=== PATIENT | female | born 1985 | race African-American/Black ===

== ENCOUNTER 2019-06-14 15:18 | Emergency (ER) | payer MEDICAID ==
[~2019-06-14] VITALS: Ht 154.9 cm; Wt 55.8 kg
[2019-06-14 15:23] VITALS: BP 99/62
[2019-06-14] MEDS ORDERED: IRON325 M1 PO (15:27)
[2019-06-14 15:40] VITALS: BP 99/62
[2019-06-14] MEDS ORDERED: ROBAXIN-750750 MG PO (15:52)
[2019-06-14] MEDS ORDERED: TYLENOL EXTRA500 MG ORAL (15:52)
--- NOTE | 2019-06-14 15:52 | Emergency Room Report ---
History of Present Illness General Chief Complaint: Pain Source: Patient Present Illness HPI 34-year-old female presents to the emergency department complaining of 10 out of 10 severity progressive onset upper back and neck pain x2 weeks. Patient reports she slept wrong one night and has had neck pain ever since. Patient reports she feels tightness in her neck and it radiates up towards the back of her head associated occasional headache as well. Patient denies trauma, fall, fevers, chills, photophobia, paresthesias, recent spinal procedures or history of cancer. Patient states that on some days her neck feels really stiff on the right side and will resolve spontaneously after lots of stretching. Patient states she is not taking any medications for her symptoms other than trying Motrin here and there which did not work. Denies recent illness or viral symptoms. Denies midline neck or back pain. Pt. reports pain and tightness to both sides of the neck posteriorly but not on the bone. Allergies: Coded Allergies: No Known Allergies (Unverified , 06/14/19) Patient History Past Medical History: see triage record Past Surgical History: none Pertinent Family History: none Last Menstrual Period: MAY 2019 Reviewed Nursing Documentation: PMH: Agreed; PSxH: Agreed Nursing Documentation-PMH Past Medical History: No History, Except For Review of Systems All Other Systems: negative except mentioned in HPI Physical Exam Vital Signs Date Time Temp Pulse Resp B/P (MAP) Pulse Ox O2 Delivery O2 Flow Rate FiO2 06/14/19 15:23 98.4 81 18 99/62 (74) 99 Room Air Sp02 EP Interpretation: reviewed, normal General Appearance: well appearing, no apparent distress, alert, GCS 15, non- toxic Head: normocephalic, atraumatic Eyes: bilateral eye normal inspection, bilateral eye PERRL, bilateral eye other - no photophobia ENT: hearing grossly normal, normal voice, TMs + canals normal Neck: full range of motion, no meningismus, no bony tend, tender lateral - right> left , No midline spinous process ttp. No palpable step-offs or obvious deformities. Respiratory: chest non-tender, lungs clear, normal breath sounds, speaking full sentences Cardiovascular #1: regular rate, rhythm Musculoskeletal: normal range of motion, gait/station normal, non-tender, tender - cervical paraspinal ttp. No midline spinous process ttp. No palpable step-offs or obvious deformities of the cervical, thoracic, lumbar or sacral spine. Neurologic: alert, motor strength/tone normal, oriented x3, sensory intact, responsive, speech normal Psychiatric: judgement/insight normal Lymphatic: no adenopathy Medical Decision Making PA Attestation Dr. Guzman is my supervising Physician whom patient management has been discussed with. Diagnostic Impression: Primary Impression: Cervical muscle strain Qualified Codes: S16.1XXA - Strain of muscle, fascia and tendon at neck level , initial encounter Additional Impression: Neck muscle spasm ER Course 34-year-old female presents to the emergency department complaining of 10 out of 10 severity progressive onset upper back and neck pain x2 weeks. Patient reports she slept wrong one night and has had neck pain ever since. Patient reports she feels tightness in her neck and it radiates up towards the back of her head associated occasional headache as well. Patient denies trauma, fall, fevers, chills, photophobia, paresthesias, recent spinal procedures or history of cancer. Patient states that on some days her neck feels really stiff on the right side and will resolve spontaneously after lots of stretching. Patient states she is not taking any medications for her symptoms other than trying Motrin here and there which did not work. Denies recent illness or viral symptoms. Denies midline neck or back pain. Pt. reports pain and tightness to both sides of the neck posteriorly but not on the bone. Ddx considered but are not limited to Fracture, dislocation, contusion, Sprain/ Strain/Spasm, Epidural abscess, Neoplastic mets. Vital signs: are WNL, pt. is afebrile H&PE are most consistent with soft tissue neck strain, no evidence to suggest spinal chord impingement, or fracture, no midline bony tenderness or pain. No meningeal signs ORDERS: - X-ray not warranted at this time as patient's symptoms are localized in the soft tissues. ED INTERVENTIONS: - Lidoderm TP DISCHARGE: At this time pt. is stable for d/c to home. Will provide printed patient care instructions, and any necessary prescriptions. Care plan and follow up instructions have been discussed with the patient prior to discharge. Last Vital Signs Date Time Temp Pulse Resp B/P (MAP) Pulse Ox O2 Delivery O2 Flow Rate FiO2 06/14/19 15:23 98.4 81 18 99/62 (74) 99 Room Air Disposition: HOME, SELF-CARE Condition: Stable Scripts Lidocaine Patch* (Lidoderm Patch*) 1 Each Adh..patch 1 PATCH TOPIC DAILY, #30 PATCH 0 Refills Patch(es) may remain in place for up to 12 hours in any 24-hour period. Prov: Parvin Trinh 06/14/19 Acetaminophen* (TYLENOL EXTRA STRENGTH*) 500 Mg Tablet 500 MG ORAL Q6H, #20 TAB 0 Refills Prov: Parvin Trinh 06/14/19 Methocarbamol* (ROBAXIN-750*) 750 Mg Tablet 750 MG PO QID, #28 TAB 0 Refills Prov: Parvin Trinh 06/14/19 Referrals: [facility] Patient Instructions: Muscle Strain, [id number] Additional Instructions: Take medications as directed. Follow up with a Primary Care Provider in 3-5 days, even if your symptoms have resolved. --Please review list of primary care clinics, if you do not already have a primary care provider Return sooner to ED if new symptoms occur, or current symptoms become worse. Do not drink alcohol, drive, or operate heavy machinery while taking Robaxin ( Muscle Relaxers) as this may cause drowsiness. - Please note that this Emergency Department Report was dictated using [employer] technician technology software, occasionally this can lead to erroneous entry secondary to interpretation by the dictation equipment. Parvin Trinh Jun 14, 2019 15:52
[2019-06-14] MEDS ORDERED: LIDODERM700 M1 TOPIC (15:59)
== END 2019-06-14 16:12 | disposition home or self-care (01) ==
LOC: EMR 15:48
DX: S16.1XXA Strain of muscle, fascia and tendon at neck level, initial encounter (principal); M62.838 Other muscle spasm; X58.XXXA Exposure to other specified factors, initial encounter; Y93.9 Activity, unspecified; Y92.9 Unspecified place or not applicable
CPT/HCPCS: 99283